=== PATIENT | male | born 1970 | race Caucasian/White ===

== ENCOUNTER 2018-12-02 05:49 | Emergency (ER) | payer SELFPAY ==
[~2018-12-02] VITALS: Ht 175.3 cm; Wt 97.5 kg
[2018-12-02 05:50] VITALS: Ht 175.3 cm; Wt 97.5 kg
[2018-12-02 07:01] LABS: CALCIUM 9.3 mg/dL (8.5-10.1); CARBON DIOXIDE 25.5 mmol/L (21-32); CHLORIDE SERUM 103 mmol/L (98-107); GFR1 > 60 mL/min; GLUCOSE SERUM 305 mg/dL (74-106); POTASSIUM SERUM 4.2 mmol/L (3.5-5.1); SODIUM SERUM 140 mmol/L (136-145)
[2018-12-02 07:10] LABS: ALBUMIN 3.9 g/dL (3.4-5.0); ALKALINE PHOSPHATASE 64 U/L (46-116); ALT/SGPT 47 U/L (16-63); AST/SGOT 22 U/L (15-37); BILIRUBIN TOTAL 0.86 mg/dL (0.20-1.00); CHOLESTEROL 182 mg/dL (<200); TOTAL PROTEIN, SERUM 7.2 g/dL (6.4-8.2)
[2018-12-02 07:11] LABS: CHOLESTEROL/HDL RATIO 8.3; HDL CHOLESTEROL 22 mg/dL (40-60); TRIGLYCERIDES 948 mg/dL (<150)
[2018-12-02 07:12] LABS: BASOPHIL % 0.4 % (0-2); PLATELET COUNT 262 x10^3mcL (130-400); RED CELL DISTRIBUTION WIDTH 14.2 % (11.5-14.5)
[2018-12-02 08:13] LABS: microscopic required? YES; urine erythrocyte 3+ (NEGATIVE)
[2018-12-02 09:16] VITALS: BP 129/77
== END 2018-12-02 09:16 | disposition home or self-care (01) ==
LOC: ED 05:49
PROVIDERS: Specialist
DX: N23 Unspecified renal colic (principal); E86.0 Dehydration; R73.9 Hyperglycemia, unspecified
CPT/HCPCS: J1885; J2405; J3010; J7030; Q0092